=== PATIENT | male | born 1960 | race Caucasian/White ===

== ENCOUNTER 2017-09-17 19:47 | Inpatient (IN) | payer OTHER ==
[~2017-09-17] VITALS: Ht 162.6 cm; Wt 94.4 kg
--- NOTE | ~2017-09-17 | EKG ---
[place] [address] [facility] [place] [address] ELECTROCARDIOGRAM REPORT Name: GAURAV TOMAS Room #: 237-P ADM IN M.R.#: [id number] Admission: 09/17/17 Attend Phys: Misha Murillo MD Discharge: Date of : 64 Report #: [id number] THIS REPORT FOR: //name// [facility] ED Test Date: 2017-09-17 Test Time: 19:59:53 Pat Name: GAURAV TOMAS Department: Room: Gender: M Knocker Off: YAMILET : 1960 Requested By: Hanane Santamaria Order Number: [id number] MD: Bridger May Measurements Intervals [place] Rate: 92 P: 60 AK: 123 QRS: 80 QRSD: 103 T: 50 QT: 425 QTc: 526 Interpretive Statements Sinus rhythm Poor R wave progression Borderline T wave abnormalities Prolonged QT interval No previous ECG available for comparison Electronically Signed On 09-18-2017 7:53:35 CDT by Bridger May [email or web address] <ELECTRONICALLY SIGNED> By: Bridger May MD, [facility] 09/18/17 0753 [id number] Bridger May MD, FACC /EPI
--- NOTE | ~2017-09-17 | HC ---
[facility] [place] [address] CONSULTATION Name: GAURAV TOMAS Room #: 237-P ADM IN M.R.#: [id number] Admission: 09/17/17 Attend Phys: Misha Murillo MD Discharge: Date of : 64 Report #: [id number] THIS REPORT FOR: //name// CC: Misha ROSS PCP DATE OF SERVICE: 09/18/2017 REFERRAL PHYSICIAN: Dr. Adriano Pace. REASON FOR REFERRAL: Acute respiratory failure. HISTORY OF PRESENT ILLNESS: The patient is a 56-year-old white male who presents to the Emergency Room with dyspnea. A pulmonary consultation was requested. History is somewhat incomplete. The patient apparently has significant history regarding his abdominal issues. He has had prior bowel resections on 2 occasions. The surgery was said to be done at [facility]. According to the patient, he was in his usual state of health until for the past 3 days that he started to notice increasing dyspnea on exertion. He complains of cough productive of purulent sputum along with headache. The patient smokes. Portable chest x-ray on admission along with CT chest angiogram was reviewed. This revealed bilateral patchy infiltrates, is felt to be moderate. Bronchiectasis is also noted bilaterally, more on the right lung field than the left. Currently, he is better. Somewhat restless. Alert and oriented to place and time. This morning, he complains of abdominal distention following breakfast. He states that he gets his care usually at [facility]. PAST MEDICAL HISTORY: Notable for tobacco abuse, prior history of bowel resection, history of right hip replacement. ALLERGIES: TORADOL, DEMEROL, MORPHINE, REACTIONS NOT SPECIFIED. MEDICATIONS: His home medication list is unknown. FAMILY HISTORY: Unknown. SOCIAL HISTORY: He smokes about a pack a day. Denies any alcohol use. [facility] [address] [place] [address] CONSULTATION Name: GAURAV TOMAS Room #: 237-P [facility] IN [facility]#: [id number] Admission: 09/17/17 Attend Phys: Misha Murillo MD Discharge: Date of : 64 Report #: [id number] REVIEW OF SYSTEMS: As mentioned above. Otherwise, 10-point system review negative. PHYSICAL EXAMINATION: GENERAL: He is awake, alert, in no apparent distress. VITAL SIGNS: Temperature is 97.4 degrees Fahrenheit, pulse is 90, respiratory rate is 20, blood pressure is 164/93 mmHg, saturation 96%. HEENT: Unremarkable. NECK: Supple without any lymphadenopathy or thyromegaly. CHEST: Breath sounds are good with few scattered crackles. No obvious wheezes. CARDIOVASCULAR: Normal S1, S2. There are no murmurs or gallop. There is no JVD. There is no carotid bruit. Pulses are 2+/4+ bilaterally. ABDOMEN: Moderately distended, tender in the left quadrant without rebound. No obvious masses felt. Surgical scars are seen in the mid abdominal line area. GENITOURINARY: Deferred. RECTAL: Deferred. EXTREMITIES: There is edema, cyanosis or clubbing. LABORATORY DATA: Chest x-ray and CT chest as mentioned above showing patchy bilateral infiltrates along with bilateral bronchiectasis. No evidence of pulmonary emboli seen. Small amount of ascites is noted. Arterial blood gas on admission revealed pH 7.25, pCO2 77, pO2 of 82 on 3 liters of O2. Follow up arterial blood gas shows a pH 7.28, pCO2 64, pO2 of 99. Sodium 139, potassium 4.3, chloride 104, CO2 is 34, BUN is 11, creatinine 0.6. Liver enzymes are normal. Albumin is 2.8. WBC is 13,900 without obvious bandemia. Mild eosinophilia is noted. IMPRESSION: 1. Acute on chronic hypercapnic hypoxic respiratory failure in this 56-year-old white male. Chest x-ray and chest CT revealed patchy bilateral infiltrates along with bronchiectasis. Pneumonia is suspected, possible aspiration. Presence of bronchiectasis suggests possible gram-negative rods such as Pseudomonas as a possible organism. 2. Tobacco abuse. The patient probably has underlying chronic obstructive pulmonary disease along with bronchiectasis. Corticosteroids and bronchodilators will be recommended. 3. Abdominal distention. He has a past history of bowel resection. With his pneumonia patient may be developing early ileus. May need further workup. We will defer to primary care team. 4. Prior abdominal surgery. Details unclear. Recommend review of the records from [facility]. RECOMMENDATIONS: Agree with the current care including antibiotics. We would add corticosteroids, bronchodilators. DVT and GI prophylaxis is recommended. Tobacco cessation is strongly recommended. We will also need to address abdominal distention. We will defer to primary team. [facility] [address] [place] [address] CONSULTATION Name: GAURAV TOMAS Room #: 237-P ADM IN M.R.#: [id number] Admission: 09/17/17 Attend Phys: Misha Murillo MD Discharge: Date of : 64 Report #: [id number] Thank you for this consultation. <ELECTRONICALLY SIGNED> By: Jose Justin MD 09/19/17 1808 [id number] [id number] Jose Justin MD /nt
[2017-09-17 19:53] VITALS: BP 187/110
[2017-09-17 20:28] LABS: ABSOLUTE NEUTROPHILS 10.4 thou/uL (1.4-8.2); BASOPHILS 0.7 % (0.0-2.0); EOSINOPHILS 5.1 % (0.0-3.0); HEMATOCRIT 37.1 % (42.0-52.0); LYMPHOCYTES 8.9 % (24.0-44.0); MCH 28.3 pg (26.0-34.0); MCHC 32.4 g/dL (28.0-37.0); MCV 87.4 fL (80.0-100.0); MONOCYTES 10.7 % (1.0-8.0); PLATELET COUNT 386 thou/uL (150-400); POLYS 74.6 % (36.0-66.0); RBC 4.25 mil/uL (4.50-6.00); RDW 15.4 % (10.5-14.5); WBC 13.9 thou/uL (4.0-11.0)
[2017-09-17 20:36] LABS: ANION GAP 1 mmol/L (7-16); BUN 11 mg/dL (7-18); CALCIUM 7.9 mg/dL (8.5-10.1); CHLORIDE 102 mmol/L (98-107); CO2 34 mmol/L (21-32); CREATININE 0.7 mg/dL (0.7-1.3); GLUCOSE 140 mg/dL (74-106); POTASSIUM 3.4 mmol/L (3.5-5.1); SODIUM 137 mmol/L (136-145)
[2017-09-17 20:42] LABS: BE(vivo) 4.3 mmol/L (-2 to +3); HCO3 33.7 mmol/L (22.0-26.0); PO2 83.3 mmHg (80.0-100.0); sO2 94.2 % (92.0-98.0)
[2017-09-17 20:43] LABS: pH 7.259 (7.360-7.450)
[2017-09-17 20:44] LABS: ALBUMIN 2.8 g/dL (3.4-5.0); SGOT 36 U/L (15-37); SGPT 47 U/L (30-65); TOTAL BILIRUBIN 0.5 mg/dL (<0.1-1.0); TOTAL PROTEIN 7.9 g/dL (6.4-8.2); TROPONIN-I < 0.04 ng/mL (<0.06)
[2017-09-17 22:38] VITALS: BP 179/100
[2017-09-18] VITALS (17 sets, daily range): BP systolic 141–175; BP diastolic 79–99
[2017-09-18 05:09] LABS: BE(vivo) 1.6 mmol/L (-2 to +3); HCO3 29.9 mmol/L (22.0-26.0); PCO2 64.8 mmHg (35.0-45.0); PO2 99.7 mmHg (80.0-100.0); pH 7.282 (7.360-7.450); sO2 96.6 % (92.0-98.0)
[2017-09-18 06:56] LABS: HEMATOCRIT 38.3 % (42.0-52.0); HEMOGLOBIN 12.2 gm/dL (14.0-18.0); MCH 28.4 pg (26.0-34.0); MCHC 31.8 g/dL (28.0-37.0); MCV 89.2 fL (80.0-100.0); RBC 4.3 mil/uL (4.50-6.00); WBC 8.7 thou/uL (4.0-11.0)
[2017-09-18 07:10] LABS: CALCIUM 7.8 mg/dL (8.5-10.1); CREATININE 0.6 mg/dL (0.7-1.3); POTASSIUM 4.3 mmol/L (3.5-5.1)
[2017-09-19] VITALS (17 sets, daily range): BP systolic 128–155; BP diastolic 72–94
[2017-09-19 05:43] LABS: CALCIUM 8.3 mg/dL (8.5-10.1); CREATININE 0.6 mg/dL (0.7-1.3); POTASSIUM 4.3 mmol/L (3.5-5.1)
[2017-09-19 08:02] LABS: HEMATOCRIT 37.2 % (42.0-52.0); HEMOGLOBIN 12.1 gm/dL (14.0-18.0); MCH 28.5 pg (26.0-34.0); MCHC 32.5 g/dL (28.0-37.0); MCV 87.7 fL (80.0-100.0); RBC 4.24 mil/uL (4.50-6.00); RDW 15.6 % (10.5-14.5)
[2017-09-19 11:02] LABS: BE(vivo) 5.5 mmol/L (-2 to +3); HCO3 34.3 mmol/L (22.0-26.0); PCO2 73.4 mmHg (35.0-45.0); PO2 86.4 mmHg (80.0-100.0); pH 7.288 (7.360-7.450); sO2 95.1 % (92.0-98.0)
[2017-09-19 12:52] LABS: AMP/METHAMP POSITIVE (Negative); BARBITURATES Negative (Negative); BENZODIAZEPINES Negative (Negative); COCAINE Negative (Negative); METHADONE Negative (Negative); OPIATES Negative (Negative); PCP Negative (Negative)
[2017-09-20] VITALS (17 sets, daily range): BP systolic 116–146; BP diastolic 56–91
[2017-09-20 13:22] LABS: BE(vivo) 2.9 mmol/L (-2 to +3); HCO3 34.7 mmol/L (22.0-26.0); PCO2 101.3 mmHg (35.0-45.0); PO2 64.7 mmHg (80.0-100.0); pH 7.153 (7.360-7.450); sO2 84.5 % (92.0-98.0)
[2017-09-20 14:18] LABS: BE(vivo) 1.7 mmol/L (-2 to +3); HCO3 33.6 mmol/L (22.0-26.0); PO2 84.2 mmHg (80.0-100.0); sO2 92.2 % (92.0-98.0)
[2017-09-20 14:19] LABS: PCO2 99.9 mmHg (35.0-45.0); pH 7.144 (7.360-7.450)
[2017-09-20 14:48] LABS: HEMATOCRIT 37.6 % (42.0-52.0); HEMOGLOBIN 11.7 gm/dL (14.0-18.0); MCH 28.3 pg (26.0-34.0); MCHC 31.2 g/dL (28.0-37.0); MCV 90.6 fL (80.0-100.0); RBC 4.15 mil/uL (4.50-6.00); RDW 16.6 % (10.5-14.5); WBC 20.9 thou/uL (4.0-11.0)
[2017-09-20 14:57] LABS: ANION GAP < 0 mmol/L (7-16); BUN 26 mg/dL (7-18); CALCIUM 8.5 mg/dL (8.5-10.1); CHLORIDE 102 mmol/L (98-107); CO2 35 mmol/L (21-32); CREATININE 0.9 mg/dL (0.7-1.3); GLUCOSE 130 mg/dL (74-106); POTASSIUM 5.2 mmol/L (3.5-5.1); SODIUM 136 mmol/L (136-145)
[2017-09-21] VITALS (25 sets, daily range): BP systolic 127–178; BP diastolic 71–100
[2017-09-21 04:50] LABS: HEMATOCRIT 34.7 % (42.0-52.0); MCHC 31.8 g/dL (28.0-37.0); MCV 88.3 fL (80.0-100.0); RBC 3.92 mil/uL (4.50-6.00); RDW 16.4 % (10.5-14.5); WBC 11.7 thou/uL (4.0-11.0)
[2017-09-21 04:59] LABS: CALCIUM 8.5 mg/dL (8.5-10.1); CREATININE 0.8 mg/dL (0.7-1.3)
[2017-09-21 05:00] LABS: POTASSIUM 4.1 mmol/L (3.5-5.1)
[2017-09-21 05:12] LABS: BE(vivo) 9.1 mmol/L (-2 to +3); HCO3 35.5 mmol/L (22.0-26.0); PCO2 57.8 mmHg (35.0-45.0); PO2 59.6 mmHg (80.0-100.0); pH 7.406 (7.360-7.450); sO2 90.4 % (92.0-98.0)
[2017-09-21 15:18] LABS: BE(vivo) 7.9 mmol/L (-2 to +3); HCO3 33.1 mmol/L (22.0-26.0); PCO2 48.2 mmHg (35.0-45.0); PO2 50.7 mmHg (80.0-100.0); pH 7.454 (7.360-7.450); sO2 87.2 % (92.0-98.0)
[2017-09-22] VITALS (18 sets, daily range): BP systolic 136–186; BP diastolic 66–101
[2017-09-22 04:35] LABS: HEMATOCRIT 37.1 % (42.0-52.0); HEMOGLOBIN 12.5 gm/dL (14.0-18.0); MCH 28.8 pg (26.0-34.0); MCHC 33.6 g/dL (28.0-37.0); MCV 85.8 fL (80.0-100.0); RBC 4.33 mil/uL (4.50-6.00); RDW 15.1 % (10.5-14.5); WBC 12.3 thou/uL (4.0-11.0)
[2017-09-22 04:44] LABS: CALCIUM 8.4 mg/dL (8.5-10.1); CREATININE 0.7 mg/dL (0.7-1.3); POTASSIUM 3.9 mmol/L (3.5-5.1)
[2017-09-22 05:02] LABS: BE(vivo) 11.4 mmol/L (-2 to +3); HCO3 36.1 mmol/L (22.0-26.0); PCO2 47.2 mmHg (35.0-45.0); pH 7.501 (7.360-7.450); sO2 88.8 % (92.0-98.0)
[2017-09-22 05:04] LABS: PO2 51.1 mmHg (80.0-100.0)
[2017-09-23 04:00] VITALS: BP 156/96
[2017-09-23 05:27] LABS: HEMATOCRIT 38.5 % (42.0-52.0); HEMOGLOBIN 12.5 gm/dL (14.0-18.0); MCH 28.1 pg (26.0-34.0); MCHC 32.4 g/dL (28.0-37.0); MCV 86.7 fL (80.0-100.0); RBC 4.44 mil/uL (4.50-6.00); RDW 15.4 % (10.5-14.5); WBC 17.5 thou/uL (4.0-11.0)
[2017-09-23 05:37] LABS: CALCIUM 8.7 mg/dL (8.5-10.1); CREATININE 0.6 mg/dL (0.7-1.3); POTASSIUM 4.1 mmol/L (3.5-5.1)
[2017-09-23 08:42] VITALS: BP 155/98
[2017-09-23 18:36] VITALS: BP 154/72
[2017-09-23 19:25] VITALS: BP 164/78
[2017-09-24 03:00] VITALS: BP 122/60; BP 159/79
[2017-09-24 08:30] VITALS: BP 162/86
[2017-09-24 11:52] LABS: HEMATOCRIT 38.5 % (42.0-52.0); HEMOGLOBIN 12.6 gm/dL (14.0-18.0); MCH 28.4 pg (26.0-34.0); MCHC 32.7 g/dL (28.0-37.0); MCV 86.8 fL (80.0-100.0); RBC 4.44 mil/uL (4.50-6.00); RDW 15.7 % (10.5-14.5); WBC 15.3 thou/uL (4.0-11.0)
[2017-09-24 12:14] LABS: ALBUMIN 2.6 g/dL (3.4-5.0); CALCIUM 8.5 mg/dL (8.5-10.1); CREATININE 0.7 mg/dL (0.7-1.3); MAGNESIUM 1.8 mg/dL (1.8-2.4); POTASSIUM 3.9 mmol/L (3.5-5.1); TOTAL BILIRUBIN 0.4 mg/dL (<0.1-1.0); TOTAL PROTEIN 6.7 g/dL (6.4-8.2)
[2017-09-24 14:10] LABS: BE(vivo) 8.8 mmol/L (-2 to +3); PCO2 49.4 mmHg (35.0-45.0); pH 7.456 (7.360-7.450); sO2 92.6 % (92.0-98.0)
[2017-09-24 15:31] VITALS: BP 161/102
[2017-09-24] MEDS ORDERED: CEFUROXIME250 MG PO (15:37)
[2017-09-24] MEDS ORDERED: PREDNISONE 10 M10 MG PO (15:39)
[2017-09-24 15:52] VITALS: BP 162/102
== END 2017-09-24 18:30 | disposition home or self-care (01) | DRG 871 ==
LOC: ER 19:47 → EROBS 21:18 → ICU 21:18 → 4N 09-22 17:33
PROVIDERS: Hospitalist; Internal Medicine; Internal Medicine Pulmonary Disease; Nurse Practitioner Acute Care; Nurse Practitioner Family; Physician Assistant
DX: A41.9 Sepsis, unspecified organism (principal); J18.9 Pneumonia, unspecified organism; J96.21 Acute and chronic respiratory failure with hypoxia; J96.22 Acute and chronic respiratory failure with hypercapnia; G93.41 Metabolic encephalopathy; J44.0 Chronic obstructive pulmonary disease with (acute) lower respiratory infection; R18.8 Other ascites; R65.20 Severe sepsis without septic shock; Z96.641 Presence of right artificial hip joint; I10 Essential (primary) hypertension; F15.10 Other stimulant abuse, uncomplicated; K74.60 Unspecified cirrhosis of liver; F17.210 Nicotine dependence, cigarettes, uncomplicated; Z71.6 Tobacco abuse counseling; Z88.5 Allergy status to narcotic agent; Z88.8 Allergy status to other drugs, medicaments and biological substances
CPT/HCPCS: 10078; 10203; 10790; 27001

== ENCOUNTER 2018-09-29 13:08 | Emergency (ER) | payer OTHER ==
[~2018-09-29] VITALS: Ht 162.6 cm; Wt 74.8 kg
[~2018-09-29 13:08] MED LIST: CEFUROXIME250 MG PO; PREDNISONE 10 M10 MG PO
[2018-09-29 14:26] LABS: ABSOLUTE NEUTROPHILS 10.1 thou/uL (1.4-8.2); BASOPHILS 0.5 % (0.0-2.0); EOSINOPHILS 3.7 % (0.0-3.0); HEMATOCRIT 39.9 % (42.0-52.0); HEMOGLOBIN 13.4 gm/dL (14.0-18.0); LYMPHOCYTES 11.9 % (24.0-44.0); MCH 28.3 pg (26.0-34.0); MCHC 33.7 g/dL (28.0-37.0); MCV 83.9 fL (80.0-100.0); PLATELET COUNT 315 thou/uL (150-400); POLYS 74.9 % (36.0-66.0); RBC 4.75 mil/uL (4.50-6.00); RDW 14.6 % (10.5-14.5); WBC 13.5 thou/uL (4.0-11.0)
[2018-09-29 14:40] LABS: ALBUMIN 2.9 g/dL (3.4-5.0); CALCIUM 8.4 mg/dL (8.5-10.1); CREATININE 0.7 mg/dL (0.7-1.3); DIRECT BILIRUBIN 0.2 mg/dL (<0.1-0.3); TOTAL BILIRUBIN 0.5 mg/dL (<0.1-1.0); TOTAL PROTEIN 7.6 g/dL (6.4-8.2)
[2018-09-29 14:43] LABS: URINE BILIRUBIN NEGATIVE (Negative); URINE BLOOD NEGATIVE (Negative); URINE CLARITY CLEAR; URINE COLOR YELLOW; URINE GLUCOSE-RANDOM* NEGATIVE (Negative); URINE KETONES NEGATIVE (Negative); URINE LEUKOCYTES-REFLEX NEGATIVE (Negative); URINE NITRITE-REFLEX NEGATIVE (Negative); URINE PROTEIN (DIPSTICK) TRACE (Negative); URINE SPECIFIC GRAVITY 1.025 (1.005-1.035)
[2018-09-29 14:46] LABS: POTASSIUM 2.9 mmol/L (3.5-5.1)
[2018-09-29] MEDS ORDERED: CLOTRIMAZOLE10 MG PO (16:11)
[2018-09-29 16:20] VITALS: BP 176/104
[2018-09-29] MEDS ORDERED: POTASSIUM20 PO (16:20)
== END 2018-09-29 16:38 | disposition home or self-care (01) ==
LOC: ER 13:08
PROVIDERS: Emergency Medicine
DX: R13.10 Dysphagia, unspecified (principal); E87.6 Hypokalemia; F17.210 Nicotine dependence, cigarettes, uncomplicated; Z88.5 Allergy status to narcotic agent; Z88.6 Allergy status to analgesic agent; Z88.8 Allergy status to other drugs, medicaments and biological substances; Z96.641 Presence of right artificial hip joint

== ENCOUNTER 2018-10-02 01:27 | Inpatient (IN) | payer OTHER ==
[~2018-10-02] VITALS: Ht 162.6 cm; Wt 72.6 kg
--- NOTE | ~2018-10-02 | HC ---
[facility] [place] [address] CONSULTATION Name: GAURAV TOMAS Room #: 202-P [facility] IN M.R.#: [id number] Admission: 10/02/18 ������������������ Attend Phys: Derrek Berumen MD Discharge: ������������������ Date of : 64 Report #: [id number] THIS REPORT FOR: //name// CC: Derrek Berumen MD [facility] physician/PCP Silvino Nunn MD PALLIATIVE CARE CONSULTATION REQUESTING PHYSICIAN: Dr. Berumen CHIEF COMPLAINT: Pharyngeal cancer. HISTORY OF PRESENT ILLNESS: The patient is a 57-year-old male who had presented on 10/02. He presented initially with several concerns, however, has been subsequently found to have laryngeal cancerous process, most likely a mass was discovered on imaging, likely squamous cell carcinoma per ENT; however, biopsy has not yet been performed. The patient has had significant development of aspiration pneumonia, found to have significant dysphagia. Subsequently, has also developed significant delirium as well and is currently not responsive to verbal stimuli. The patient has been very agitated, requiring doses of Haldol and Ativan per nursing staff. The patient has required oxygen treatment as well. He has a history of polysubstance abuse and also cirrhosis of the liver. The patient has a complicated social history as well, though is . There is a situation of homelessness and this complicates his overall condition. PAST MEDICAL HISTORY: COPD, pharyngeal cancer, chronic hypoxic respiratory failure, cirrhosis, multidrug abuse. FAMILY HISTORY: Noncontributory. SOCIAL HISTORY: Again, history of polysubstance abuse previously. Again, complicated social situation, has 6 children, youngest is 11. He is , but homeless, potential situation as well. ALLERGIES: TORADOL, MORPHINE, DEMEROL. MEDICATIONS AT HOME: Unable to obtain his previous medication list, but it did not appear that he is on significant medications. PAST SURGICAL HISTORY: Right hip replacement, bowel resection x 2. REVIEW OF SYSTEMS: Unable to obtain due to medical condition. PHYSICAL EXAMINATION: VITAL SIGNS: Temp 36.7, pulse 105, respirations 17, blood pressure 120/42, 91% [facility] [address] [place] [address] CONSULTATION Name: GAURAV TOMAS Room #: 202-P ADM IN M.R.#: [id number] Admission: 10/02/18 ������������������ Attend Phys: Derrek Berumen MD Discharge: ������������������ Date of : 64 Report #: [id number] on nasal cannula. GENERAL: Not alert, not agitated on my current examination, but has been most recently per the staff. HEENT: Unable to assess. CARDIOVASCULAR: Regular rate and rhythm without murmur, although occasionally running tachycardic. RESPIRATORY: No accessory muscle use. No tachypnea. Does have diffuse rales noted. ABDOMEN: Appears to be soft, nonsignificantly tender. NEUROLOGIC: Unable to assess at this time due to present medical condition. LABORATORY DATA: This included a white blood cell 15.9, hemoglobin 12.1, platelets 239. Recent sodium 149, potassium 4.2, creatinine 0.6. ASSESSMENT AND PLAN: 1. Laryngeal cancer. At this time, we are waiting to see if he has an improvement in his delirium prior to any further treatment protocol as per Ears, Nose and Throat. Additionally, I have discussed with his spouse today the overall medical condition. She is aware of his present condition and understands the seriousness of this condition. She reports that he did not desire to have intubation or cardiopulmonary resuscitation and that he would not want a feeding tube. She understands that that would result in ultimately the patient's if he were not to be able to access nutrition. She is understanding of the fact if he gets any worse that he may require a palliative type of care in order to keep him comfortable. She is amenable to current medications including switch to Zyprexa and stoppage of Ativan, which I recommended to primary team in order to expedite the possibility of improvement in delirium. I spent approximately 25 minutes in discussion of advanced care planning today. Again, she is desiring to continue current care to see if he has some improvement in delirium, but if he has any declination further in his medical condition, then she would be amenable to discussion of hospice. 2. Delirium. Significant mixed. Again, switch to Zyprexa today as well to see if we can control his symptoms better and see if we can alleviate this symptom as soon as possible if this is a possibility. 3. Dysphagia. Discussed significantly with spouse today. Again, if unable to take p.o., likely to require hospice care services. Thank you very much for this consultation. I will continue to follow along with care, but if you have any questions, please feel free to contact me. ��������������������������������������������� ���������������������������������������� By: ��������������������������������������������� 2131 Esvin Baker DO /nt
[~2018-10-02 01:27] MED LIST changes: +CLOTRIMAZOLE10 MG PO; +POTASSIUM20 PO
[2018-10-02 01:33] VITALS: BP 144/67
[2018-10-02 02:07] LABS: MCH 27.6 pg (26.0-34.0); MCHC 32.8 g/dL (28.0-37.0)
[2018-10-02 02:12] LABS: HEMATOCRIT 41.6 % (42.0-52.0); HEMOGLOBIN 13.6 gm/dL (14.0-18.0); MCV 84.2 fL (80.0-100.0); PLATELET COUNT 301 thou/uL (150-400); RBC 4.94 mil/uL (4.50-6.00)
[2018-10-02 02:19] LABS: ALBUMIN 2.7 g/dL (3.4-5.0); ANION GAP 6 mmol/L (7-16); BUN 11 mg/dL (7-18); CALCIUM 8.3 mg/dL (8.5-10.1); CHLORIDE 99 mmol/L (98-107); CO2 33 mmol/L (21-32); CREATININE 0.7 mg/dL (0.7-1.3); DIRECT BILIRUBIN 0.5 mg/dL (<0.1-0.3); GLUCOSE 112 mg/dL (74-106); SGOT 29 U/L (15-37); SGPT 33 U/L (30-65); SODIUM 138 mmol/L (136-145); TOTAL BILIRUBIN 1.3 mg/dL (<0.1-1.0); TOTAL PROTEIN 7.3 g/dL (6.4-8.2); TROPONIN-I <0.06 ng/mL (<0.06); WBC 45.2 thou/uL (4.0-11.0)
[2018-10-02 02:21] LABS: POTASSIUM 2.8 mmol/L (3.5-5.1)
[2018-10-02 02:40] LABS: BE(vivo) 0.1 mmol/L (-2 to +3); HCO3 26.5 mmol/L (22.0-26.0); PCO2 50.3 mmHg (35.0-45.0); PO2 65.3 mmHg (80.0-100.0); sO2 91.5 % (92.0-98.0)
[2018-10-02 03:00] LABS: ABSOLUTE NEUTROPHILS 42.5 thou/uL (1.4-8.2)
[2018-10-02 03:02] LABS: PLATELET ESTIMATE NORMAL
[2018-10-02 03:43] VITALS: BP 144/66
[2018-10-02 05:16] LABS: AMP/METHAMP POSITIVE (Negative); BARBITURATES Negative (Negative); BENZODIAZEPINES Negative (Negative); COCAINE Negative (Negative); METHADONE Negative (Negative); OPIATES Negative (Negative); PCP Negative (Negative)
[2018-10-02 06:12] LABS: URINE BILIRUBIN NEGATIVE (Negative); URINE BLOOD NEGATIVE (Negative); URINE CLARITY CLEAR; URINE COLOR YELLOW; URINE GLUCOSE-RANDOM* NEGATIVE (Negative); URINE KETONES NEGATIVE (Negative); URINE LEUKOCYTES-REFLEX NEGATIVE (Negative); URINE NITRITE-REFLEX NEGATIVE (Negative); URINE PROTEIN (DIPSTICK) 1+ (Negative); URINE SPECIFIC GRAVITY 1.025 (1.005-1.035)
[2018-10-02 06:13] LABS: BACTERIA-REFLEX 1-9 Few /HPF (None Seen); CRYSTALS None Seen /LPF (None Seen); HYALINE CASTS 0-3 Few /LPF (None Seen); MUCUS 4-6 Moderate strn/LPF (None Seen); SQUAMOUS 0-3 Few /LPF (0-3); URINE RBC 0-2 Rare /HPF (0-2); URINE WBC-REFLEX 0-5 Rare /HPF (0-5)
--- NOTE | 2018-10-02 06:30 | NUR ---
PT NEW ADMIT FROM ED. PT ONLY RESPONDS TO PAIN STIMULI. IN COMPANY OF . VITALS STABLE WITH MILD FEVER. MAGNESIUM AND POTASSIUM BEING REPLACED. REPORTS PT HAS NO HISTORY OF DRUG USE. PT MAINTAINED ON O2 2L NASAL CANNULA. STRAIGHT CATH PATIENT TO OBTAIN URINE SAMPLE. VANCO STARTED.PT IS SR ON MONITOR. SEVERAL SKIN BREAKDOWNS. ERYTHEMA ON BOTH HANDS AND FEET/ CELLULITIS. WBC ELEVATED. CARE PLAN ACTIVATED. WILL CONTINUE TO MONITOR.
[2018-10-02 07:20] VITALS: BP 127/59
--- NOTE | 2018-10-02 15:19 | NUR ---
ORDERS RECEIVED FOR CLINICAL BEDSIDE SWALLOW EVALUATION; ADVERTISING DISPLAY ROTATOR HOMER STEWART COMPLETED AT BEDSIDE WITH PATIENT EVIDENCING OVERT S/S OF ASPIRATION WITH ALL CONSISTENCIES INCLUDING EMESIS S/P SWALLOW WITH THIN LIQUIDS. PATIENT REPORTS FREQUENT REFLUX AND SENSATION OF FOODS STICKING IN THROAT WHILE CONSUMING PO INTAKE. PATIENT ALSO PRESENTS WITH SIGNIFICANT HOARSE VOCAL QUALITY WHICH PER PATIENT IS NEW OF 2 MONTHS AGO. THIS ADVERTISING DISPLAY ROTATOR ATTEMPTED TO COMPLETE VIDEOSWALLOW TO FORMALLY ASSESS PHARYNGEAL SWALLOW FUNCTION AND EVALUATE PHARYNGEAL REFLUX; HOWEVER VFSS UNABLE TO BE COMPLETED D/T MULTIPLE SCHEDULING CONFLICTS WITH RADIOLOGY. BASED ON CLINICAL PRESENTATION TO ADVERTISING DISPLAY ROTATOR DEPT EARLIER THIS DATE AND AFTER DISCUSSION WITH VENEER DRIER TAILER DR DAS, ADVERTISING DISPLAY ROTATOR RECOMMENDS PATIENT BE PLACED NPO UNTIL VIDEOSWALLOW CAN BE COMPLETED TOMORROW MORNING 10/03/18. BOTH RN AND PATIENT UPDATED RE: POC.
--- NOTE | 2018-10-02 16:20 | NUR ---
ASSESSMENTS CHARTED - PT VERY SLEEPY AT THENN BEGINNING OF THE SHIFT AND THEN AWOKEN - CO'S OF BEING HUNGRY AND TIRSTY - DID NOT NOTE ANY CHOCKING WHILE EATING BREAKFAST - PT DID TELL DOCTOR THAT HE FELT FOOD GETS STUCK IN HIS THROAT - SPEECH CONSULT ORDERED - PT TO BE NPO UNTIL VBIDEO SWALLOW CAN BE DONE. MEDS PER JUL - NO CO'S OF PAIN - IV FLUIDS CONTINUE. PT VOIDING DARK NARINDER URINE. PT TO BE SEEN BY PHYS THERAPY - NICOTINE PATCH APPLIED. PT CAN BE RESTLESS AT TIMES HAS BEEN SLEEPING THIS AFTERNOON. O2 REMAIN AT 2 L NC - PT WITH PRODUCTIVE COUGH - SPUTUM BLOOD TINGED - DR THIAGO SMITH. ONCE PATIENT UP SHOWERED AND FEED HE BECAME LESS AGGITATED. APPEARS TO BE RESTING COMFORTABLE AT THE PRESENT TIME.
--- NOTE | 2018-10-02 17:31 | NUR ---
PT AWOKE FROM [place] - WANTING ICE CREAM AND FLUIDS - INFORMED PATIENT THAT HE WAS NOT ABLE TO HAVE THESE AND HE BECAME BELIGERANT - CURSING AND STATING THAT HE WAS ARACELIS TO [place] - GOT ATIVAN FOR PATIENT IN ATTEMPT TO CALM HI DOWN - HE REFUSED TO TAKE MEDICATION STATING THAT - WE WERE NOT GOING TO DRUG HIM, HE HAS RIGHTS- INFORMED PATIENT THAT i WOULD NOT GIVE MED. CALLED TO THE NURSES STATION -PATIENT HAD CALLED 911 AND OFFICER CHECKIING TO SEE IF EVERYTHING WAS OKAY - INFORMED OFFICER WHAT WAS HAPPENING AND HE STATED TO CALL THEMIF WE NEEDED ANYTHING. PT APOLOGIZED FOR BEING BELIGERANT AND CALLING 911; IS AT CAT SCAN AT THE PRESENT TIME - SAW DR Rhodes AND INFORMED HIM TO PATIENT BEHAVIOUR HE STATED TO GET [facility] CONSULT - DR MUÑOZ NOTIFIED.
[2018-10-02 20:20] VITALS: BP 159/77
--- NOTE | 2018-10-03 02:46 | NUR ---
1900, PT ALERT AND ORIENTED. ABLE TO CALL APPROPRIATELY AND MAKE NEEDS KNOWN. PT REPORTS THAT HE CALLED 911 DURING THE DAY BECAUSE " THEY WERE TRYING DRUG ME". SECURITY CALLED AT ABOUT 2200 TO CLARIFY WITH THE OFFICERS. PT WAS THEN CALM AND COOPERATIVE. DAUGHTER VISITED AT ABOUT 2100. AT ABOUT 0000, PT STARTED TO BE AGITATED AND AXIOUS. YELLING " I DID NOT DO ANYTHING WRONG." REASSURED PT BUT WOKE UP 0200 EXTREMELY AGITATED. STANDING ON THE BED, PULLING IV TUBES OFF HIM. ATIVAN 1MG GIVEN. UPDATED REFRIGERATOR CAR ICER MARLA ABOUT PT CONDITION . PT SLEPT AFTER THE ATIVAN. WILL CONTINUE TO MONITOR PT AND FOLLOW PLAN OF CARE.
[2018-10-03 04:00] VITALS: BP 155/84
[2018-10-03 05:20] LABS: HEMATOCRIT 41.7 % (42.0-52.0); MCH 27.3 pg (26.0-34.0); MCHC 31.3 g/dL (28.0-37.0); MCV 87.3 fL (80.0-100.0); RBC 4.78 mil/uL (4.50-6.00); WBC 32.7 thou/uL (4.0-11.0)
[2018-10-03 05:42] LABS: ALBUMIN 2.5 g/dL (3.4-5.0); CALCIUM 8.5 mg/dL (8.5-10.1); CREATININE 0.6 mg/dL (0.7-1.3); MAGNESIUM 1.9 mg/dL (1.8-2.4); POTASSIUM 3.8 mmol/L (3.5-5.1); TOTAL BILIRUBIN 0.4 mg/dL (<0.1-1.0); TOTAL PROTEIN 7.4 g/dL (6.4-8.2)
[2018-10-03 07:42] VITALS: BP 142/85
--- NOTE | 2018-10-03 13:53 | NUR ---
CM attempted to visit with the pt;however he is sleepy and not able to participate in conversation. Case discussed with the care team. Pt had aggitation overnight and needed ativan. Pt's has not been back since admission. They live together but they may be living out of their car. Pt's UDS was postive for meth. Pt was here a year ago with similar situation and they were living in a friends basement. Nursing reports that an adult dtr came by last night to visit. Pt without insurance. [facility] referral initiated. Pt will likely need referrals to [facility] and script assist at [place]. ENT consult, video swallow and CT in progress. Will ask for therapy evals when appropriate as well as a followup visit to discuss [facility] resources.
[2018-10-03 14:02] VITALS: BP 142/85
--- NOTE | 2018-10-03 15:10 | HC ---
[facility] [place] [address] CONSULTATION Name: GAURAV TOMAS Room #: 202-P ADM IN M.R.#: [id number] Admission: 10/02/18 ������������������ Attend Phys: Derrek Berumen MD Discharge: ������������������ Date of : 64 Report #: [id number] THIS REPORT FOR: //name// CC: Derrek Berumen [facility] physician/PCP REFERRING PHYSICIAN: Dr. Berumen. REASON FOR REFERRAL: COPD. HISTORY OF PRESENT ILLNESS: The patient is a 57-year-old white male who presents to the ED with dyspnea and difficulty swallowing. He has a history of COPD. Pulmonary consultation was requested. The patient is known to this physician from his last hospitalization in 09/2017. He is known to have COPD along with chronic hypercapnic respiratory failure. The patient states that he was in his usual state of health until about a week ago started to develop dysphagia, hoarseness along with dyspnea. Denies any fever, chest pain, hemoptysis, nausea, vomiting, diarrhea. PAST MEDICAL HISTORY: Notable for multiple bowel surgery per patient, hospitalized at [facility] in the past, tobacco abuse, presumed COPD, right hip surgery, drug abuse including amphetamines. ALLERGIES: TORADOL, DEMEROL, MORPHINE, reactions not specified. HOME MEDICATIONS: Reviewed. FAMILY HISTORY: Noncontributory. SOCIAL HISTORY: He smokes about a pack a day. Denies any alcohol use, but does abuse drugs including amphetamines. REVIEW OF SYSTEMS: As mentioned above, otherwise 10-point systems reviewed were negative. PHYSICAL EXAMINATION: GENERAL: He is awake, alert, in no distress. VITAL SIGNS: Temperature is 101.8 degrees Fahrenheit, maximum, currently it is 98.6; pulse is 90; respiratory rate is 16; blood pressure 127/59 mmHg; saturation 95%. HEENT: Normocephalic, atraumatic. NECK: Supple, without lymphadenopathy or thyromegaly. CHEST: Breath sounds are fair with mild coarse breath sounds bilaterally. CARDIOVASCULAR: Normal S1, S2. No obvious murmurs or gallop. Pulses are 2+/4+ [facility] [address] [place] [address] CONSULTATION Name: GAURAV TOMAS Room #: 202-P ADM IN M.R.#: [id number] Admission: 10/02/18 ������������������ Attend Phys: Derrek Berumen MD Discharge: ������������������ Date of : 64 Report #: [id number] bilaterally. ABDOMEN: Soft, nontender, no organomegaly or masses felt. GENITOURINARY: Deferred. RECTAL: Deferred. EXTREMITIES: There is no edema, cyanosis or clubbing. LABORATORY DATA: Chest x-ray shows mild bilateral interstitial infiltrates. Influenza A and B swab is negative. Urine drug screen was positive for amphetamines. Sodium 138, potassium 2.8, chloride 99, CO2 33, BUN is 11, creatinine 0.7. Liver enzymes are grossly unremarkable. WBC 45,200; hemoglobin 13.6; platelets are normal; has significant bandemia. Albumin 2.7. Arterial blood gas revealed pH 7.34, pCO2 of 50, pO2 of 65 on 2 liters of O2. IMPRESSION: 1. Dyspnea, dysphagia in this 57-year-old white male. His voice has also become hoarse over the past week. Need to rule out mediastinal or upper airway pathology. 2. Rohll-kw-cuhhkra hypercapnic hypoxic respiratory failure. 3. Tobacco abuse, chronic obstructive pulmonary disease exacerbation. 4. Infiltrates, probable pneumonia. Patient is febrile along with marked leukocytosis. 5. Cellulitis involving left upper extremity, may be the source for febrile illness. 6. Hypokalemia, currently being replaced. 7. Encephalopathy, toxic metabolic. 8. Substance abuse including tobacco and amphetamines. RECOMMENDATION: The patient will need a CT of the neck and chest to rule out upper airway and mediastinal pathology. Speech has been already consulted. Agree with broad-spectrum antibiotics. Continue corticosteroids and bronchodilators. DVT and GI prophylaxis will be addressed. Strongly recommend smoke cessation along with counseling for drug abuse. Thank you for this consultation. ��������������������������������������������� <ELECTRONICALLY SIGNED> ���������������������������������������� By: Jose Justin MD ��������������������������������������������� 10/03/18 1510 1700 0656 Jose Justin MD /nt
[2018-10-03 20:00] VITALS: BP 148/94
[2018-10-04 04:30] VITALS: BP 121/77
[2018-10-04 06:00] LABS: HEMOGLOBIN 12.1 gm/dL (14.0-18.0); MCH 27.2 pg (26.0-34.0); MCV 87.7 fL (80.0-100.0); RBC 4.44 mil/uL (4.50-6.00); RDW 15.4 % (10.5-14.5); WBC 24.3 thou/uL (4.0-11.0)
[2018-10-04 06:14] LABS: CALCIUM 9.1 mg/dL (8.5-10.1); CREATININE 0.6 mg/dL (0.7-1.3); POTASSIUM 4.2 mmol/L (3.5-5.1)
[2018-10-04 07:27] VITALS: BP 130/80
--- NOTE | 2018-10-04 08:19 | NUR ---
RECEIVED PT'S CARE AT 1920; PT. ON CHAIR; DROWSY; WAKES UP WHEN NAME IS CALLED; DURING ASSESSMENT PT. DROWSY; NOT ABLE TO ANSWER WHERE HE IS OR DAY; NO C/O PAIN; AT MIDNIGHT TRANSFER TO BED; AT AROUND 0130 PT. WOKE UP CONFUSED; IRRITABLE; IMPULSIVE; PRN MEDICATION GIVEN; PULLED TWO IVS; TRYING TO GET UP FROM BED FOR AROUND 3H; PRN HALDOL GIVEN; AT AROUND 0300 PT. FALLED TO SLEEP; NEW IVs STARTED; ASSESSMENT CHARDED; FOLLOWING POC; PASSED ON REPORT.
[2018-10-04 15:19] VITALS: BP 119/80
--- NOTE | 2018-10-04 18:21 | NUR ---
CONTRARY, IMPULSIVE WHEN NOT ASLEEP. DR. DELANEY, ENT, SCOPES HIM IN THE ROOM AND DISCOVERS A TUMOR ON HIS RIGHT VOCAL CORD. HIS SPEECH IS VERY GUTTERAL AND DIFFICULT TO UNDERSTAND. BG WNL. WBC 24.3 BUT WAS 32.7; ANTIBIOTICS ORDERED. FALL PRECAUTIONS IN PLACE, CLOSE TO NURSES' STATION, FREQUENT CHECKS, WILL CONTINUE TO MONITOR.
[2018-10-04 19:13] VITALS: BP 180/83
[2018-10-05 00:15] VITALS: BP 132/80
[2018-10-05 04:10] VITALS: BP 126/84
--- NOTE | 2018-10-05 04:29 | NUR ---
Patient making slow progress towards outcome goals. Vital signs stable. Haldol given for restlessness. Incontinent of urine. IVfluids infusing. High fall risks, fall precautions in place. Refused fingerstrick.
[2018-10-05 06:10] LABS: ABSOLUTE NEUTROPHILS 14.4 thou/uL (1.4-8.2); BASOPHILS 0.1 % (0.0-2.0); EOSINOPHILS 0.1 % (0.0-3.0); HEMOGLOBIN 12.1 gm/dL (14.0-18.0); LYMPHOCYTES 3.3 % (24.0-44.0); MCH 27.2 pg (26.0-34.0); MCHC 29.6 g/dL (28.0-37.0); MONOCYTES 6.3 % (1.0-8.0); PLATELET COUNT 239 thou/uL (150-400); POLYS 90.2 % (36.0-66.0); RBC 4.45 mil/uL (4.50-6.00); RDW 16.4 % (10.5-14.5); WBC 15.9 thou/uL (4.0-11.0)
[2018-10-05 06:38] LABS: CALCIUM 9.3 mg/dL (8.5-10.1); CREATININE 0.7 mg/dL (0.7-1.3); POTASSIUM 5.1 mmol/L (3.5-5.1)
[2018-10-05 08:23] VITALS: BP 139/94
--- NOTE | 2018-10-05 10:41 | HC ---
[facility] [place] [address] CONSULTATION Name: GAURAV TOMAS Room #: 202-P ADM IN M.R.#: [id number] Admission: 10/02/18 ������������������ Attend Phys: Derrek Berumen MD Discharge: ������������������ Date of : 64 Report #: [id number] THIS REPORT FOR: //name// CC: Derrek Berumen [facility] physician/PCP DATE OF SERVICE: 10/04/2018 REASON FOR CONSULTATION: Hoarseness. HISTORY OF PRESENT ILLNESS: The patient is a 57-year-old male who has been hoarse by his 's account for about 10 months. She had encouraged him to go see a physician about his hoarseness, but he has refused to go. He has been admitted to the hospital with cellulitis, septicemia and COPD exacerbation with hypokalemia. He has been sedated, was sedated last night, but this morning, now midday, he is still somewhat sedated. He is able to respond to vigorous stimulation and I did ask whether I could look at his throat and he said yes, but he could not tolerate the scope going through his nose, so I did look at his voice box through his oral cavity. Sedation is significant enough that he does not really have much of a gag response. On exam, he does have a right-sided mass with paralysis on the right side. PAST MEDICAL HISTORY: Significant for hip replacement. See his complete medical record for his medical history. FAMILY HISTORY: Noncontributory. SOCIAL HISTORY: He smokes a pack a day and has been since he was a teenager. REVIEW OF SYSTEMS: He is hoarse, but he is somewhat sedated and not really able to communicate any other significant complaints at this time. PHYSICAL EXAMINATION: GENERAL: On exam, he is a well-developed male, who is in no apparent distress. He is resting, semi-supine in bed and is fairly sedate. HEENT: Head is normocephalic. Pupils are equal. Nasal septal deviation to the left. Oral cavity, no granulation or ulcerations seen. Hypopharynx and larynx examined by flexible fiberoptic laryngoscopy transorally show secretions in the hypopharynx. There is a right true vocal cord mass, which is occupying the majority of the cord. Right true vocal cord mobility is impaired. NECK: Cervical adenopathy is palpated bilaterally. The lymph nodes are significantly larger than 2 cm. 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 Aishwarya status is unknown. It is difficult to determine on CT scan whether any of these are metastatic disease, but there are generous lymph nodes present. [address] [address] CONSULTATION Name: GAURAV TOMAS Room #: 202-P [facility] IN M.R.#: [id number] Admission: 10/02/18 ������������������ Attend Phys: Derrek Berumen MD Discharge: ������������������ Date of : 64 Report #: [id number] PLAN: He will need biopsy to confirm the diagnosis and then treatment. Surgical treatment for a person with COPD with [id number] history of smoking would be total laryngectomy. Alternatively, chemotherapy and radiation therapy may be organ sparing; however, the patient would need to be significantly motivated. ��������������������������������������������� <ELECTRONICALLY SIGNED> ���������������������������������������� By: Chivo Gill MD ��������������������������������������������� 10/05/18 1041 [id number] Chivo Gill MD /nt
[2018-10-05 15:15] VITALS: BP 135/80
--- NOTE | 2018-10-05 15:55 | NUR ---
PT A&O TO SELF, IV INTACT IN L ARM INFUSING NS @80/HR. O2@5L PER NC HUMIDIFIED. PT BECAME RESTESS, CLIMBING OUT OF BED AND PULLING AT IV. UNABLE TO REDIRECT. INCONT. OF BLADDER. ATIVAN IV GIVEN, WILL CONT POC.
[2018-10-05 19:42] VITALS: BP 146/89
--- NOTE | 2018-10-05 23:07 | NUR ---
ASSUMED PT AT 1900. PT DROWSY BY AROUSABLE BY NAME. PT WAS SOMEWHAT AGITATED, WOULD NOT STAY IN BED, 0.5 OF ATIVAN GIVEN. MUCINEX NOT GIVEN B/C PT IS NPO. RT CALLED FOR BREATHING TX. ASSESSMENTS ARE DOCUMENTED. PT IS INCONTINENT. STABLE IN BED NOW. ORAL CARE DONE. PT CARE TRANSFERED TO ANOTHER NURSE AT 2325.
[2018-10-06] VITALS: BP 170/92
--- NOTE | 2018-10-06 04:07 | NUR ---
CARE ASSUMED AT 2300 10/05/18. CLIENT IS ALERT TO NAME AND PAIN AND DROWSY. NOT CURRENTLY ON TELE, HAS SLIGHT EDEMA 1+ THROUGOUT. REMAINS ON 02 4L/NC. CURRENTLY NPO, LAST BM 10/02/18 ON RECORD. INCONT OF B & B. BRUISING THROUGHT AND OPEN SCARS/SCABS ON UPPER BILATERAL EXTREMITIES. LEFT FA PIV W/ NS @ 100ML/HR. CLIENT CURRENTLY IS AC/HS WITH NO SC SSI. PLEASE SEE [employer] FOR ADDITIONAL QUESTIONS OR CONCERNS.
[2018-10-06 08:00] VITALS: BP 125/87
[2018-10-06 11:42] VITALS: BP 189/102
--- NOTE | 2018-10-06 12:24 | NUR ---
ASSUMES PATIENT CARE, ASSESSMENT CHARTED, CONFUSED AND AGITATED, COMBATIVE FOR SHORT PERIODS OF TIME THEN WILL SLEEP. HALDOL GIVEN. WILL CONTINUE TO MONITOR
[2018-10-06 16:00] VITALS: BP 163/101
--- NOTE | 2018-10-06 17:49 | NUR ---
ASSESSMENT CHARTED, PT IS NOT ORIENTED, AT TIMES RESTLESS AND COMBATIVE. NS INFUSING AT 125. BLOOD PRESSURES INCREASED, CALL TO DR. HINES TO REPORT INCREASED BP, NO ORDERS AT THIS TIME. O2 AT A4L, WILL CONTINUE TO MONITOR
[2018-10-06 20:57] VITALS: BP 180/99
[2018-10-06 21:12] LABS: BE(vivo) 7.4 mmol/L (-2 to +3); HCO3 36.8 mmol/L (22.0-26.0); PO2 114.5 mmHg (80.0-100.0); sO2 97.5 % (92.0-98.0)
[2018-10-06 21:14] LABS: pH 7.286 (7.360-7.450)
--- NOTE | 2018-10-07 04:39 | NUR ---
1900. PT CONFUSED AND AGITATED. ATIVAN WITH NO SUCCESS. PT PULLING ON O2 IV TUBING. OBTAINED RETRAINT ORDER. CODE STATUS CHANGE TO NO CODE BY JIMMY HINES. REMAINS NPO. RT FOUT PT 02 SATS IN 70S ON 4L NASAL CANNULA. STAT BLOOD GAS WERE DOSE. CRITICAL VALUES CALLED TO JIMMY DAS. NO NEW ORDERS OBTAINED. ENCOURAGED TO CONTINUE KEEPING PT COMFORTBLE. WILL CONTINUE WITH PLAN OF CARE
[2018-10-07 04:45] VITALS: BP 181/95
[2018-10-07 08:00] VITALS: BP 186/122
[2018-10-07 10:03] VITALS: BP 184/99
[2018-10-07 12:00] VITALS: BP 181/102
--- NOTE | 2018-10-07 15:00 | NUR ---
REFERRAL FAXED TO HOSPICE INTAKE FOR HOSPICE HOUSE EVAL. PRESS CUTTER, DEVON, WILL EVAL PT 10/08 AROUND 10 AM.
[2018-10-07 16:00] VITALS: BP 162/102
--- NOTE | 2018-10-07 16:19 | NUR ---
SPOKE WITH TO ALERT OF HOSPICE HOUSE EVAL IN AM BETWEEN 9-10. OFFERED OPTIONS OF HOSPICE HOUSE EVALS WITH SHE CHOSE TO HAVE HOSPICE HOUSE EVAL. SHE QUESTIONS BIOPSY OF PATIENT AND STATUS OF BIOPSY.
[2018-10-07 20:15] VITALS: BP 170/83
--- NOTE | 2018-10-07 20:40 | NUR ---
PATIENT ORIENTED TO SELF AND LOCATION AND AGITATED CALLING OUT TO STAFF AND ATTEMPTING TO KICK AND HIT STAFF. PATIENT BEING FOLLOWED BY DR. MUÑOZ. POSSIBLE DISCHARGE TO HOSPICE CARE ONE SPOUSE DECIDES ON A FACILITY.
[2018-10-08 00:45] VITALS: BP 149/89
--- NOTE | 2018-10-08 00:51 | NUR ---
ASSUMED CARE AROUND 1900. DROWSY, WAS ON SW RESTRAINTS. ORAL CARE AND SUNCTION PROVIDED AT BEDSIDE. A DOSE OF HALDOL WAS ADMINISTERED EARLIER FOR AGITATION. AROUND 2229, PT BECAME VERBALLY RESPONSITVE STRATED COMMUNICATING NEEDS FOR ORAL CARE, BED CHANGES, AND WANTING TO TALK TO TRANG ON PHONE. AFTER ALL PT'S NEEDS WERE MET, PT VERVALIZED THAT PT WILL NOT DISCONNECT ANY MEDICAL DEVIDES ANYMORE. RELIEASED THE RESTRAINTS AND STAYED WITH THE PT FOR ABOUT 30MIN TO ENSURE THAT PT SHOWS SAFE BEHAVIORS. LEFT THE ROOM AND FREQUENT VISUAL CHECKS WERE RENDERERED TO MAKE SURE PT IS SAFE AND RECEIVING ALL MEDICAL TX. PT WAS ON FACE MASK, BUT REQUESTED TO BE ON NASAL CANNULA, REPORTED TO RT ARSH AND PT WAS PUT ON NS 1L SATTING ABOVE 94%. AROUND MIDNIGHT, PT'S FAMILY ARRIVED AND PT REUQESTED TO BE TRANSFFERED TO [facility] RIGHT AWAY BECAUSE PT'S SURGERIES MAJORITY OF MEDICAL CARES WERE PROVIDED AT [facility]. EXPLAINED TO PT AND FAMILY THE PROCESS OF NON-EMERGENCY TRANSFER. CALLED [facility] AND REPORTED THE REQUEST. THERE ARE NO RESOUCES AVAILABLE AT THIS TIME TO SAFELY TRANSFER THE DAGOTNET. PT AND VERVLAIZE THE UNDERSTANDING OF THE SITUATION. WILL LEAVE A DETAILED REPORT FOR DAY SHIFT TO FOLOOW UP WITH ATTENDING/AMY/KENYETTA. PT IS RESTING ON BED COMFORTABLY. NO S/S ACUTE DISTRESS NOTED OR REPORTED AT THIS TIME. WILL CONT TO MONITOR FOR ANY CHANGES IN CONDITION.
[2018-10-08 04:45] VITALS: BP 137/72
[2018-10-08 08:14] VITALS: BP 159/68
--- NOTE | 2018-10-08 14:14 | NUR ---
Hospice met with patient and . Hospice reports adament she wants biopsy done prior to any decision regarding hospice services. Udpated Dr Berumen.
--- NOTE | 2018-10-08 16:27 | NUR ---
Assumed pt care at 7am.Pt in bed sleeping on and off .Assessment completed. Vss.Pt was evaluated for hospice house and accepted for transfer today.But when pt informed,she refused and wanted pt have laryngeal biopsy prior to transfer to hospice house.Dr Berumen notified and he discussed the care options with the .Pt kept npo and oral care done as needed.Pt wet bed alot today and refused external catheter.Ivf infusing as ordered.Will continue to monitor.
[2018-10-08 20:10] VITALS: BP 162/70
[2018-10-09 04:44] LABS: HEMATOCRIT 40.8 % (42.0-52.0); MCH 27.6 pg (26.0-34.0); MCHC 31.8 g/dL (28.0-37.0); MCV 86.7 fL (80.0-100.0); PLATELET COUNT 229 thou/uL (150-400); RDW 14.7 % (10.5-14.5); WBC 11.1 thou/uL (4.0-11.0)
[2018-10-09 04:45] VITALS: BP 153/89
[2018-10-09 04:46] LABS: CALCIUM 8.8 mg/dL (8.5-10.1); CREATININE 0.7 mg/dL (0.7-1.3); POTASSIUM 3.4 mmol/L (3.5-5.1)
[2018-10-09 07:33] VITALS: BP 137/86
--- NOTE | 2018-10-09 07:46 | NUR ---
ASSUMED PT CARE AT 1900. VSS. PT A&0X4. ASSESSMENTS AND MEDS GIVEN ARE DOCUMENTED. PT IS STRONG AND MORE STEADY ON HIS FEET. PT HAD A SHOWER THIS AM. BLOOD SUGAR HAS BEEN STABLE SINCE LAST NIGHT. WAS MOVED FROM 202 TO 208 BECAUSE OF HIS MED/SURG STATUS. PT COMPLAINED OF PAIN, FENTANYL WAS GIVEN TO MANAGE PAIN. PT IS STABLE IN BED. WILL CONTINUE TO MONITOR PER POC
[2018-10-09 07:47] LABS: ABSOLUTE NEUTROPHILS 9.4 thou/uL (1.4-8.2)
[2018-10-09 07:48] LABS: ANISOCYTOSIS 1+
--- NOTE | 2018-10-09 10:47 | NUR ---
Assess due to npo status x 7 days. Pt admtited with copd, and new dx SCCA of larynx. Severe wt loss 39 lb this month. Hx polysubstance abuse, cirrhosis. Chart reviewed, and palliative care/hospice being considered. Spoke with SWS and wanting bx however chart indicates pt may not tolerate a bx. Being maintained on IVF. Will continue to follow to determine plan of care.
--- NOTE | 2018-10-09 15:32 | NUR ---
Case discussed with the care team.Pt is more alert and conversant today. He is interested in possible peg tube placement and bx. NPO recommended per ST with an additional bedside swallow today. Pt to sunday jones with his family. Hospice referral on hold at this time. [employer] liason here to work on SSD and [place] medicaid application with the pt and his . Pt's not here yet and not answering her phone. Continuing to follow for support and dc planning pending pt/family's decisions for plan of care.
--- NOTE | 2018-10-09 18:14 | NUR ---
ASSUMED CARE OF PATIENT AT 0700. PATIENT COMPLAINS OF GENERALIZED WHOLE BODY PAIN AND ALLEVIATED WITH FENTANYL Q 4 HOURS, PATIENT ASKED APPROPRIATELY. PATIENT'S BLOOD SUGARS WERE MONITORED Q 6 HOURS AND REMAINED ABOVE 80. PATIENT WAS SEEN BY GI AND ST FOR SWALLOW STUDY. PATIENT IS CONTINUING TO STAY NPO. PATIENT POTASSIUM SUPPLEMENTED IV AND AWAITING LAB RECHECK. PATIENT'S FAMILY AT THE BEDSIDE FOR THE ENTIRETY OF THE AFTERNOON. CONTINUE TO FOLLOW POC.
[2018-10-09 20:01] VITALS: BP 135/78
--- NOTE | 2018-10-10 04:27 | NUR ---
ASSUMED PT CARE AT 1900. VSS. PT A&0X4. STILL COMPLAINING OF GENERALIZED PAIN TO WHICH FENTANYL IS BEING USED TO MANAGE IT. NEW IV STARTED ON LEFT FOREAM, PREVIOUS IV STARTED LEAKING. 1/2 AN AMP OF DEXTROSE IVP HAD TO BE GIVEN TONIGHT PT'S BLOOD SUGAR DROPPED TO THE 60s. WHEN RECHECKED, FSBS CAME BACK UP. PT'S VISITED AROUND 3AM THIS MORNING, PT BARELY GOT ANY SLEEP OVER NIGHT, HE TOOK A COUPLE LAPS AROUND THE UNIT. HAD A SHOWER LAST NIGHT. PT REMAINS STRONG AND STEADY ON HIS FEET. PT IS STABLE, WILL CONTINUE TO MONITOR PER POC.
[2018-10-10 05:04] LABS: ANION GAP < 0 mmol/L (7-16); BUN 14 mg/dL (7-18); CALCIUM 8.6 mg/dL (8.5-10.1); CHLORIDE 103 mmol/L (98-107); CO2 44 mmol/L (21-32); CREATININE 0.6 mg/dL (0.7-1.3); GLUCOSE 96 mg/dL (74-106); POTASSIUM 3.5 mmol/L (3.5-5.1); SODIUM 145 mmol/L (136-145)
[2018-10-10 05:41] VITALS: BP 129/80
[2018-10-10 10:20] VITALS: BP 146/75
--- NOTE | 2018-10-10 11:06 | NUR ---
Chart has been reviewed and would recommend change D5 IVF to clinimix PPN at 125ml/hr with 250ml 20% lipids until decision on PEG made. Pt has been npo 8 days.
--- NOTE | 2018-10-10 12:27 | NUR ---
Pt's spouse did meet with [employer] and the pt yesterday late afternoon. [place] medicaid application was initiated for the pt, his and their 11yr old dtr. They maintain legal custody but day to day care and retirement is provided by one of their adult children. The pt had a bx this am and plan for peg tube placement will likely be on Saturday. [employer] will also initiate a SS disability application with the pt as well given his overall health condition. The pt is currently on o2. Cm to reach out to [facility]'s enteral liason to enquire about [facility] enteral formula and supplies as well as [facility] o2. Will reassess pt's dc needs early next week. No weekend dc anticipated.
[2018-10-10 20:00] VITALS: BP 151/91
--- NOTE | 2018-10-10 20:51 | NUR ---
ASSUMED PT CARE AT 1900. PT WAS BEING BROUGHT BACK BY SECURITY AFTER TRYING TO LEAVE AMA. PT WAS SETTLED IN BED, IV MEDICATIONS RESTARTED. PT SEEMED TO BE DOING FINE UNTIL ABOUT 1930 WHEN HE CALLED OUT AND THREATENED TO LEAVE AGAIN IF WE DIDN'T GIVE HIM SOMETHING TO EAT. EDUCATION PROVIDED AND REINFORCED ABOUT WHY HE COULD NOT HAVE SOMETHING TO EAT. SOFTBALL PLAYER, NURSE PRACTITIONER AND DR. CHRISTIANSON WERE INFORMED OF THE SITUATION. ORDERS REINFORCED TO KEEP HIM STRICT NPO. PT SEEMED TO BE OK AND VERBALIZED UNDERSTANDING OF WHY HE CANNOT HAVE SOMETHING TO EAT. AT ABOUT 1999, PT STATED THAT HE ABSOLUTELY WANTED SOMETHING TO EAT AND WILL SIGN THE AMA FORM IF THAT'S WHAT IT TOOK. MORE EDUCATION PROVIDED ABOUT WHAT SIGNING THE AMA FORM MEANS. PT ADAMANT TO LEAVE AND VERBALIZED UNDERSTANDING. TRIED CONTACTING PT'S BUT NO RESPONSE. EXPLAINED TO PT THAT IT WILL BE GOOD FOR HIM TO AT LEAST WAIT FOR HIS TO COME GET HIM HE MENTIONED THAT SHE WAS ON HER WAY TO THE HOSPITAL AND HE DID NOT HAVE ANY SHOES. PT DID NOT WANT TO WAIT. VITALS TAKEN AND STABLE, BLOOD SUGAR WAS 129. NO COMPLAINT OF PAIN. PT CLINICALLY STABLE PRIOR TO LEAVING. AMA FORM SIGNED. SOFTBALL PLAYER, REFUELING RAMP ATTENDANT, AND DR. CHRISTIANSON INFORMED. PT LEFT UNIT AT ABOUT 2030 AND ACCOMPANIED TO SECURITY WHERE HE WASDROPPED OFF. IV DISCONTINUED.
--- NOTE | 2018-10-13 16:28 | O ---
[facility] [place] [address] OPERATIVE REPORT Name: GAURAV TOMAS Room #: 208-P [facility] IN M.R.#: [id number] Admission: 10/02/18 ������������������ Attend Phys: Derrek Berumen MD Discharge: 10/10/18 ������������������ Date of : 64 Report #: [id number] THIS REPORT FOR: //name// CC: Derrek Berumen [facility] physician/PCP Misha Murillo MD DATE OF SERVICE: 10/10/2018 PREOPERATIVE DIAGNOSIS: Right supraglottic laryngeal mass. POSTOPERATIVE DIAGNOSIS: Right supraglottic laryngeal mass. PROCEDURE: Direct endoscopic laryngoscopy with biopsy of right supraglottic mass. DESCRIPTION OF PROCEDURE: The patient was brought to the operating room and placed in the supine position. General anesthesia was obtained. Mask inhalation was provided. An oral endotracheal tube was inserted. The patient was prepped and draped for laryngoscopy and biopsy. A 4 x 4 gauze was used to protect his remaining teeth, which are few and far between and has very poor dentition. A Dedo laryngoscope was used to examine the hypopharynx and larynx. The epiglottis was full on the right side. The laryngeal introitus shows a mass present in the false cords in the supraglottis area on the right side, it spills over into the aryepiglottic fold and in laterally toward the piriform sinus and extends posteriorly to the arytenoid. The right true vocal cord is visualized after moving the mass laterally and it does appear that the right true vocal cord mucosa is intact; however, it is impossible to delineate whether there is immobility of the cord secondary to the bulky nature of the false cord mass versus a true arytenoid paralysis, although the bulk certainly may extend inferiorly down to the arytenoid joint. Micro upbiting cup was then utilized to biopsy the mass and thus this was sent for permanent pathology. There was very little bleeding. The procedure was then terminated. The patient was awoken from anesthesia and transferred to recovery room stable and will remain admitted and have results as soon as possible. ��������������������������������������������� <ELECTRONICALLY SIGNED> ���������������������������������������� By: Chivo Gill MD ��������������������������������������������� 10/13/18 1628 1448 Chivo Gill MD /nt
== END 2018-10-10 20:30 | disposition left against medical advice (07) | DRG 871 ==
LOC: ER 01:27 → 2N 02:50 → EROBS 02:50 → 2N 03:44
PROVIDERS: Emergency Medicine; Internal Medicine Pulmonary Disease; Nurse Practitioner Family; Pediatrics; ADMIT Hospitalist
PROC: 0CBS8ZX Excision of Larynx, Via Natural or Artificial Opening Endoscopic, Diagnostic (ICD-10-PCS; principal; 2018-10-10)
DX: A41.9 Sepsis, unspecified organism (principal); J96.21 Acute and chronic respiratory failure with hypoxia; J96.22 Acute and chronic respiratory failure with hypercapnia; G92 Toxic encephalopathy; J69.0 Pneumonitis due to inhalation of food and vomit; K55.069 Acute infarction of intestine, part and extent unspecified; J44.1 Chronic obstructive pulmonary disease with (acute) exacerbation; L03.114 Cellulitis of left upper limb; J44.0 Chronic obstructive pulmonary disease with (acute) lower respiratory infection; E46 Unspecified protein-calorie malnutrition; C32.0 Malignant neoplasm of glottis; E87.6 Hypokalemia; F15.10 Other stimulant abuse, uncomplicated; K74.60 Unspecified cirrhosis of liver; J38.00 Paralysis of vocal cords and larynx, unspecified; E83.42 Hypomagnesemia; Z96.641 Presence of right artificial hip joint; F17.210 Nicotine dependence, cigarettes, uncomplicated; Z53.21 Procedure and treatment not carried out due to patient leaving prior to being seen by health care provider; Z68.27 Body mass index [BMI] 27.0-27.9, adult; Z79.899 Other long term (current) drug therapy; Z88.5 Allergy status to narcotic agent; Z88.8 Allergy status to other drugs, medicaments and biological substances
CPT/HCPCS: 10797; 50010; 50101; 62110; 62900; 70005

== ENCOUNTER 2018-10-12 14:15 | Inpatient (IN) | payer OTHER ==
[~2018-10-12] VITALS: Ht 162.6 cm; Wt 72.6 kg
[2018-10-12 14:30] VITALS: BP 119/88
[2018-10-12 14:54] LABS: ABSOLUTE NEUTROPHILS 7.7 thou/uL (1.4-8.2); BASOPHILS 0.8 % (0.0-2.0); EOSINOPHILS 1.6 % (0.0-3.0); HEMATOCRIT 36.8 % (42.0-52.0); HEMOGLOBIN 12.2 gm/dL (14.0-18.0); LYMPHOCYTES 11.5 % (24.0-44.0); MCH 28.3 pg (26.0-34.0); MCV 85.7 fL (80.0-100.0); MONOCYTES 10.1 % (1.0-8.0); PLATELET COUNT 169 thou/uL (150-400); RBC 4.29 mil/uL (4.50-6.00); RDW 14.8 % (10.5-14.5); WBC 10.2 thou/uL (4.0-11.0)
[2018-10-12 15:19] LABS: ALBUMIN 2.6 g/dL (3.4-5.0); ANION GAP 2 mmol/L (7-16); BUN 15 mg/dL (7-18); CALCIUM 8.4 mg/dL (8.5-10.1); CHLORIDE 104 mmol/L (98-107); CO2 39 mmol/L (21-32); CREATININE 0.7 mg/dL (0.7-1.3); GLUCOSE 113 mg/dL (74-106); MAGNESIUM 1.3 mg/dL (1.8-2.4); SGOT 97 U/L (15-37); SGPT 150 U/L (30-65); SODIUM 145 mmol/L (136-145); TOTAL BILIRUBIN 0.9 mg/dL (<0.1-1.0); TOTAL PROTEIN 6.1 g/dL (6.4-8.2); TROPONIN-I <0.06 ng/mL (<0.06)
[2018-10-12 15:21] LABS: POTASSIUM 2.8 mmol/L (3.5-5.1)
[2018-10-12 16:17] VITALS: BP 137/82
[2018-10-12 17:04] VITALS: BP 137/82
[2018-10-12 17:29] VITALS: BP 138/81
--- NOTE | 2018-10-12 18:40 | NUR ---
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 PT NOTED TO BE BRUSHING TEETH AND TRYING TO DRINK WATER FROM SINK JUST INSIDE ROOM...ADVISED THAT HE IS STRICT NPO..
[2018-10-12] MEDS ORDERED: NOHOMEMEDICATIONS (19:46)
[2018-10-12 20:00] VITALS: BP 142/98
[2018-10-13 04:00] VITALS: BP 148/100
--- NOTE | 2018-10-13 06:36 | NUR ---
ASSUMMED PT CARE AT 1915HRS. PT MAKING SLOW PROGRESS TOWARDS GOALS. X3 DOSES OF DILAUDID GIVEN FOR THROAT/EPIGASTRIC PAIN. FREQUENTLY RATE PAIN 7-9/10. PT ANGRY IN REGARDS TO NPO ORDER. PT STATING THAT HE DOESN'T WANT A PEG TUBE AND WANTS SOMETHING TO DRINK AND EAT. ENCOURAGED PT TO EXPRESS HIS WISHES TO THE PHYSICIANS.
[2018-10-13 07:10] LABS: CALCIUM 8.6 mg/dL (8.5-10.1); CREATININE 0.8 mg/dL (0.7-1.3); MAGNESIUM 1.8 mg/dL (1.8-2.4); POTASSIUM 3.7 mmol/L (3.5-5.1)
[2018-10-13 07:30] VITALS: BP 143/82
--- NOTE | 2018-10-13 08:46 | EKG ---
[address] [place] [address] ELECTROCARDIOGRAM REPORT Name: GAURAV TOMAS Room #: 364-P ADM IN M.R.#: [id number] ������������������ Admission: 10/12/18 ������������������ Attend Phys: Alexi Turner MD Discharge: ������������������ Date of : 64 Report #: [id number] ����������������������������������������������������������������� [id number] THIS REPORT FOR: //name// [facility] ED Test Date: 2018-10-12 Test Time: 14:42:40 Pat Name: GAURAV TOMAS Department: Room: 364 Gender: M Ocular Care Technician: divina : 1960 Requested By: George Coombs Order Number: [id number] MD: Darwin Arias Measurements Intervals [place] Rate: 85 P: 55 ND: 129 QRS: 56 QRSD: 92 T: 53 QT: 420 QTc: 500 Interpretive Statements Sinus rhythm Compared to ECG 09/17/2017 19:59:53 Poor R-wave progression no longer present T-wave abnormality no longer present Electronically Signed On 10-13-2018 8:46:18 CDT by Darwin Arias [email or web address] ��������������������������������������������� <ELECTRONICALLY SIGNED> ���������������������������������������� By: Darwin Arias MD ��������������������������������������������� 10/13/18 0846 [id number] [id number] Darwin Arias MD /[facility]
[2018-10-13 11:30] VITALS: BP 143/84
--- NOTE | 2018-10-13 13:55 | NUR ---
When PEG ready to use, recommend jevity 1.5 to start at 30ml/hr, progress to goal over 2 days to 60ml/hr. Add water flush of 250 ml every 6 hrs. Recommend daily K, Mg, phos labs to reduce risk of refeeding syndrome since pt has not eaten in several weeks
--- NOTE | 2018-10-13 16:41 | NUR ---
INITIAL ASSESSMENT: Received consult due to pt being homeless. Pt was recently hospitalized at [facility] due to new possible dx of throat cancer. Pt had bx done prior to leaving AMA on 10/11. Pt returned to the ER yesterday. GI consulted. Plan is for pt to have EGD with peg tube placement tomorrow. RD recommendation for Jevity 1.5 30 ml/hr with goal of 60 ml/hr. Add water flush 250 ml every 6 hours. During last admission, KENYETTA met with pt to provide community resource through [employer]. Pt and did complete [place]. KENYETTA met with pt at bedside. Introduced role of SW. Pt is alert/orientated x 4. Pt reports he and his family are currently homeless. SW discussed plan for peg tube placement. Pt agreeable and states that he will complete financial assistance paperwork if needed. KENYETTA contacted [employer] liaison and [employer] liaison regarding financial assistance/zamzam application. Both states that [place]-Medicaid will not go back and cover tube feeding once Medicaid is approved. Information provided: [employer]--$15/day for pump and $1.15/can of tube feeding [employer]--$20/day for pump and $1.34/can of tube feeding Should pt be on bolus TF $4.00/day for supplies. KENYETTA is following to asssist as needed with discharge planning.
[2018-10-13 20:26] VITALS: BP 154/87
--- NOTE | 2018-10-14 03:55 | NUR ---
RECEIVED REPORT @1915 AND ASSESSMENT DONE. PT TO HAVE PEG TUBE PLACEMENT IN THE MORNING AND CURRENTLY NPO FOR EGD VSS, PAIN ASSESSED AND MANAGEMENT DONE. STATED NOT HAVING A BOWEL MOVEMENT FOR MORE THAN 5 DAYS. SUPOSSITORY OREDERED AND GIVEN. PT UP AD ANURADHA AND BEDSIDE COMMODE BESIDE BED WILL CONTINUE TO MONITOR.
[2018-10-14 04:18] VITALS: BP 142/80
[2018-10-14 08:02] VITALS: BP 185/112
[2018-10-14 12:17] VITALS: BP 148/61
--- NOTE | 2018-10-14 16:00 | NUR ---
KENYETTA received call from pt requesting SW visit. KENYETTA reviewed chart and spoke with nursing and attending physician. Pt had peg tube placed earlier today. Water and meds can be used via peg tube. Tube feeding to be started tomorrow. KENYETTA met with pt and two dtrs at bedside. Lengthy discussion regarding discharge planning. Pt and spouse are homeless and have been staying with family and friends. Pt's dtr states that the last case scenario would be for pt and family to come stay with her. SW explained that housing cannot be found and secured by the time pt is ready for discharge. Pt's dtr states that pt and spouse have applied for Section 8 Housing in the past, but have not followed up on the applications. Pt and spouse are not agreeable to consider homeless shelters. Pt's dtr asked about pt being admitted to a nursing facility. Pt's works at [employer]. SW explained that the facility would need to review to see if he needs NH admission criteria and to see if they would consider taking pt as Medicaid pending. Pt agreeable with referral to [facility]. KENYETTA faxed clinical info to [facility] liaison and spoke with Yari. Yari will review info. Should pt not be able to go to [facility] post acute care, pt would need assistance with tube feeding. SW to check rates with Wendy Robin and Misa. KENYETTA is following to assist as needed with discharge planning.
[2018-10-14 16:31] VITALS: BP 155/78
--- NOTE | 2018-10-14 18:24 | NUR ---
ASSUMED PATIENT CARE AT 0700. A/O X4. PATIENT HAD EGD WITH PEG TUBE PLACED TODAY. NO BLEEDING NOTED. UP AD ANURADHA. PROGRESSING TOWARDS POC GOALS.
[2018-10-14 20:22] VITALS: BP 164/95
--- NOTE | 2018-10-15 04:05 | NUR ---
PATIENT IS ALERT AND ORIENTED. PATIENT IS PENDING DC IF TUBE FEEDING ACCESS IS ORGANIZED BY CASE MANAGEMENT. PATIENT HAD PEG TUBE PLACE YESTERDAY AND IS NPO. PATIENTS LBM WAS THE 4TH. PATIENT IS NSR ON TELE. PATIENT MAY GO HOME AFTER DIETARY AND GI ORDER TUBE FEEDING. PATIENT IS RESTING COMFORTABLY IN BED. PAIN MANAGED WITH PAIN MEDICATION. PATIENT IS PROGRESSING TO GOALS PLAN IS TO DO RADIATION THERAPY OUTPATIENT. PATIENT IS RESTING COMFORTABLY IN BED WCM.
[2018-10-15 04:30] VITALS: BP 165/99
--- NOTE | 2018-10-15 07:34 | HC ---
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 He left AMA to celebrate anniversary with his . He returned with pneumonia and shortness of breath. On this admission and with others and she has been found on exam to have a right supraglottic laryngeal cancer, appears to be clinic at T3. CT neck does not appear to show any enlarged lymph nodes noted. A CT head was unremarkable. CT chest, abdomen and pelvis showed inflammatory changes in the lung consistent with aspiration pneumonia, but no metastatic disease or other malignancies. There was a question about SMA plaque, stenosis or possible thrombus. The patient was interviewed briefly because he is preparing to go down for a PEG feeding tube. Per the chart, he has been alert. Lungs have been clear. Abdomen is soft and nontender. PAST MEDICAL HISTORY: Notable for history of a right hip replacement, bowel resection x 2 at [facility], history of COPD, vocal cord tumor, aspiration pneumonia, dysphagia, toxic metabolic encephalopathy. He has been a recent current smoker. CURRENT MEDICATIONS: As of 10/14/2018 including bisacodyl suppositories p.r.n., Zosyn 3.375 grams IV q.8h., hydromorphone p.r.n., IV fluids on a TKO basis, albuterol sulfate, respiratory therapy q.4h. while awake, methylprednisolone 40 mg daily IV and Zofran 4 mg IV p.r.n. FAMILY HISTORY: Noncontributory. SOCIAL HISTORY: The patient has tested positive for methamphetamines. Denies alcohol, has also been a continued smoker. He had worked in construction as a general internist. 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 He has young daughter. They would like see here become older, would have to clarify that. Imaging done during this admission and last one include a CT soft tissue of the neck without contrast showing a slight medial position the right vocal cord and asymmetry of the aryepiglottic folds. There is some scattered small upper cervical lymph nodes identified, most likely benign. There been a CT chest done on 10/02/2018 that showed a right lower lobe pneumonia and atelectasis and some benign granulomatous changes on the right. He also had a CT head on 10/03/2018 that was reported as negative. He had a CT chest, abdomen and pelvis earlier this showed some mediastinal lymph nodes were thought to be normal size. High bilateral pulmonary infiltrates that also been a question of noncalcified plaque or thrombus in the proximal SMA with very focal or very high-grade focal short segment stenosis, called to the nurse, there is also minimal ascites, splenomegaly measuring I think about 16 x 8 cm. Recent lab tests include a BUN of 13, creatinine of 0.8, AST of 97. Total bilirubin 0.9, ALT of 150, alkaline phosphatase 93, albumin of 2.6. White count of 10.2, hemoglobin 12.2, MCV 85.7, and platelets 169. Differential nonacute. PHYSICAL EXAMINATION: VITAL SIGNS: Height is 5 feet 4 inches, 162.6 cm, weight 160 pounds or 72.58 kilograms. Blood pressure 185/112, usually more than 142/80 range. O2 sat 95%, respirations 18, pulse 76, temperature 98.5. HEENT: Face appears symmetrical. Poor dentition. LUNGS: Mostly clear. CARDIOVASCULAR: Regular rate. LYMPHATICS: No definite lymph nodes in the neck, supraclavicular or axillary region. ABDOMEN: Slightly protuberant. Does not appear to be tender. EXTREMITIES: Without clubbing or cyanosis. ASSESSMENT AND PLAN: 1. Reported T3 N0 M0 right supraglottic P16 negative squamous cell cancer. Final path report not written by Dr. Gill, mentions he has had verbal communication. Agree with consideration of chemo and radiation therapy to try to avoid laryngectomy. Radiation Oncology yet to see the patient. The patient will need to be cleared of his pneumonia, would also a perfect world, like to have a PET scan to look at his lymph nodes. I have concern about whether he will be compliant and show for this aggressive therapy. Also, because of his insurance was originally going to be [place] Medicaid pending. He may not be treated by current, also may have to check with our partners on the [place] side and again compliance may be an issue and also traveled depend upon where he is residing. This will make his care difficult and will have to see how participatory the patient and his family are able to be, I am worried about his support system. 2. Aspiration pneumonia. Continues on antibiotics. [facility] [address] [place] [address] CONSULTATION Name: GAURAV TOMAS Room #: 364-P [facility] [place].#: [id number] Admission: 10/12/18 ������������������ Attend Phys: Alexi Turner MD Discharge: ������������������ Date of : 64 Report #: [id number] 3. Dysphagia. The patient is going down for a PEG feeding tube today. 4. Protein-calorie malnutrition, use of PEG feeding tube and use of enteral nutrition will help. 5. Chronic obstructive pulmonary disease. Encourage smoking cessation of medications per others including steroids. 6. Metabolic encephalopathy per chart appears to be clearing. 7. History of cellulitis of the left arm recently. No visible sign today, but still on antibiotics for that and other causes. 8. Polysubstance abuse with tobacco and amphetamines, per others may greatly interfere with compliance encouraged cessation. 9. Social situation. The patient reports being homeless. Social work services see the patient. ��������������������������������������������� <ELECTRONICALLY SIGNED> ���������������������������������������� By: Silvino Nunn MD ��������������������������������������������� 10/15/18 0734 [id number] Silvino Nunn MD /nt
--- NOTE | 2018-10-15 07:34 | HC ---
[facility] [place] [address] CONSULTATION Name: GAURAV TOMAS Room #: 364-P ADM IN M.R.#: [id number] Admission: 10/12/18 ������������������ Attend Phys: Alexi Turner MD Discharge: ������������������ Date of : 64 Report #: [id number] THIS REPORT FOR: //name// CC: [facility] physician/PCP Alexi Turner DATE OF SERVICE: 10/14/2018 ADDENDUM CURRENT MEDICATIONS: As of 10/14/2018 including bisacodyl suppositories p.r.n., Zosyn 3.375 grams IV q.8h., hydromorphone p.r.n., IV fluids on a TKO basis, albuterol sulfate, respiratory therapy q.4h. while awake, methylprednisolone 40 mg daily IV and Zofran 4 mg IV p.r.n. ��������������������������������������������� <ELECTRONICALLY SIGNED> ���������������������������������������� By: Silvino Nunn MD ��������������������������������������������� 10/15/18 0734 [id number] Silvino Nunn MD /nt
[2018-10-15 08:00] VITALS: BP 177/92
[2018-10-15 11:33] VITALS: BP 146/79
--- NOTE | 2018-10-15 15:21 | NUR ---
KENYETTA reviewed chart and spoke with nursing and attending physician. Pt's tube feeding started today. Pt is tolerating TF. [facility] evaluated pt at the bedside today. Pt is too high level for admission to the [facility]. However, should pt's condition decline, [facility] would be willing to re-evaluate pt. KENYETTA spoke with Charlene at [facility] regarding pt's need for tube feeding. Per Charlene, they might be able to help pt with zamzam cases of TF, but pt must have a permanent address, in order for TF to be delivered. [facility] will also need documentation from pt's oncologist as to the TF formula and medical necessity. SW met with pt at bedside to provide update. Pt becoming agitated with the tube feeding pump and IV pump. Pt wanting to eat and drink as well. Nursing educated pt on need for starting TF and gradually increasing. Pt asked to go outside. SW encouraged pt to remain on the unit. Pt verbalized understanding of not being able to go to [facility], and states that he will talk with his and family about where they can go when discharged. Pt is open to going to a homeless long-term if needed. Pt requested SW contact his dtr, Yong, to discuss. KENYETTA spoke with Yong, via phone to provide update. Pt's dtr states she will talk to pt's this evening to see what their options are. KENYETTA contacted [facility], who will be assisting with assisting pt with tube feeding and supplies. Cost would be $358/month and $25/month for syringes. [facility] states that a foundation they work with might be able to assist as well. KENYETTA to discuss costs with Director of Case Mgmt. [facility] cost would be $644.40/month. [facility] cost would be $1.34/can and $4.00/day for bolus supplies. KENYETTA is following to assist as needed with discharge planning.
[2018-10-15 16:33] VITALS: BP 173/87
--- NOTE | 2018-10-15 16:45 | NUR ---
planner internship sending to [facility] [phone]: patient's operative report, dietary note,h&p, face sheet
--- NOTE | 2018-10-15 17:06 | PATH ---
[facility] [place] [address] PATHOLOGY RPT PROCEDURE Name: NII WHITE Room #: 364-P ADM IN M.R.#: [id number] ������������������ Admission: 10/12/18 ������������������ Date of : 64 Discharge: Report #: [id number] Path Case #: [id number] [facility] Accession Number: [id number] . 01 Material submitted: . small bowel - BX OF SMALL BOWEL POLYPS . 01 Clinical history: . Vocal cord cancer . 02 Diagnosis: Polyps, small bowel polyps, endoscopic biopsy: - Fundic-type metaplasia associated with nonspecific acute duodenitis. - Negative for dysplasia (please see comment). - Negative for villous blunting or increase in intraepithelial lymphocytes. . (IUV:carmelo; 10/15/2018) QMS/10/15/2018 . 02 Comment: The findings are suggestive of peptic duodenitis. Abundant gastric fundic-type metaplasia is identified in the background in association with acute duodenitis. Due to the inflammation, reactive changes along with atypia is present within the epithelium; however, definitive dysplasia is not present. . This case was co-reviewed by Dr. Radha Worthington, who concurs with my diagnosis. . (IUV:carmelo; 10/15/2018) . . 02 Electronically signed: . Ashley Michael MD, Pathologist NPI- [id number] . 01 Gross description: . Received in formalin labeled "Nii White, BX of small bowel polyps," are multiple segments of ortiz soft tissue measuring 1.0 x 0.2 x 0.1 cm in aggregate dimensions. The specimen is filtered and entirely submitted in cassette A1. (TSD; 10/14/2018) TOB/TOB . 02 Pathologist provided ICD-10: K29.[address] [address] PATHOLOGY RPT PROCEDURE Name: NII WHITE Room #: 364-P ADM IN M.R.#: [id number] ������������������ Admission: 10/12/18 ������������������ Date of : 64 Discharge: Report #: [id number] Path Case #: [id number] . 02 [facility] . [id number] Specimen Comment: A courtesy copy of this report has been sent to Specimen Comment: [phone], . Specimen Comment: Report sent to / DR ALLISON Performed at: [address], [place], [place] [id number] MD Paul Villasenor MD Phone: [phone] Performed at: [address] [id number] MD Ashley Micahel MD Phone: [phone]
[2018-10-15 19:29] VITALS: BP 147/78
--- NOTE | 2018-10-15 21:39 | NUR ---
PATIENT ALERT AND ORIENTED. PATIENT UP AND WALKING ON THE 3W UNIT. INAPPROPRIATE WITH STAFF. FEMALE STAFF UNCOMFORTABLE WITH PATIENT. PATIENT DEMANDING AND SOMETIMES THREATENS AND TOUCHS STAFF WITHOUT PERMISSION. NOTIFIED CHARGE NURSE SO ONLY MALE STAFF CARE FOR PATIENT. IT IS QUESTIONABLE THAT PATIENT IS MAINTAINING NPO STATUS AND WILL BE ANGRY WITH STAFF IF QUESTIONED ABOUT NPO STATUS. WILL CONTINUE TO MONITOR.
--- NOTE | 2018-10-16 00:29 | NUR ---
NURSE ENTERED PATIENTS ROOM AROUND 1999 FOR PRIMARY ASSESSMENT AND NOTICED PATIENT WAS DISCONNECTED FROM TUBE FEED AND IV ANTIBIOTICS. NURSE INQUIRED WHY PATIENT WAS DISCONNECTED AND PATIENT STATED THAT HE "DID IT" SO HE "COULD TAKE A SHOWER". NURSE ASKED PATIENT TO CALL NURSING STAFF BEFORE TAKING OFF MEDICAL EQUIPMENT AND PATIENT RESPONDED THAT HE WOULD CONTINUE DISCONNECTING IT IF HE "FELT LIKE IT". NURSE SPOKE TO DIRECTOR EPIDEMIOLOGY AND PAINT GRINDER ABOUT THE SITUATION AND WAS TOLD TO EDUCATE AND DOCUMENT. NURSE EDUCATED PATIENT ABOUT THE INFECTION POTENTIAL OF DISCONNECTING IV AND THE IMPORTANCE OF HAVING CONTINUOUS TUBE FEED RUNNING WITHOUT INTERRUPTION. PATIENT WAS SILENT DURING EDUCATION AND DID NOT VERBALIZE AN UNDERSTANDING. WILL CONTINUE TO MONITOR AND EDUCATE.
[2018-10-16 03:45] VITALS: BP 140/79
--- NOTE | 2018-10-16 06:08 | NUR ---
PATIENT IS NOR PROGRESSING IN HIS CARE PLAN PRIMARILY DUE TO GENERAL NON COMPLIANCE WITH TREATMENT MODALITIES. PATIENT HAS TAKEN HIMSELF OFF OF HIS CONTINUOUS TUBE FEED MULTIPLE TIMES, DISCONNECTED AND RECONNECTED HIS IV, AND HAS NOT ADHERED TO NPO STATUS WITH NURSE WITNESSING PATIENT DRINK MULTIPLE CUPS OF COFFEE. EDUCATION PROVIDED MULTIPLE TIMES TO NO AVAIL. PATIENTS VITAL SIGNS STABLE WITH NO COMPLAINTS OF NAUSEA. PATIENT DID COMPLAIN OF PAIN WHICH WAS TREATED EFFECTIVELY. UP AROUND THE UNIT AD ANURADHA WITHOUT INCIDENT, PATIENT APPEARS STRONG AND BALANCED WHEN WALKING. TUBE FEED ADVANCED, BUT NOT QUITE TO DOCTORS ORDERS DUE TO PATIENT NOT ALLOWING TUBE FEED TO BE CONTINUOUS. CONTINUE PLAN OF CARE.
[2018-10-16 08:51] VITALS: BP 161/97
[2018-10-16 12:41] LABS: HEMATOCRIT 39.6 % (42.0-52.0); HEMOGLOBIN 12.8 gm/dL (14.0-18.0); MCH 27.8 pg (26.0-34.0); MCHC 32.2 g/dL (28.0-37.0); MCV 86.2 fL (80.0-100.0); RBC 4.59 mil/uL (4.50-6.00); RDW 15.3 % (10.5-14.5)
--- NOTE | 2018-10-16 15:58 | NUR ---
KENYETTA reviewed chart and spoke with nursing and attending physician. Pt is tolerating goal rate of tube feeding. KENYETTA faxed additional info to [facility] for review. KENYETTA contacted [employer]. Pt will be on bolus TF when discharged. KENYETTA discussed with nursing to do education when pt's family is present. Pt was sleeping soundly during time of SW visit. KENYETTA spoke with pt's dtr, Yong, via phone to discuss discharge plan. Pt and family are still working on where pt will be discharged to from here. KENYETTA updated attending physician. KENYETTA spoke with Ewelina at [facility]. Cost for a month of bolus tube feeding and supplies is $559.55. KENYETTA is following to assist as needed with discharge planning.
--- NOTE | 2018-10-16 18:27 | NUR ---
PATIENT IS NON COMPLAINT WITH CARE ALL DAY. HE WAS NOTED STOPPING HIS PEG TUBE, THEN DISCONNECTING IT WITHOUT FIRST ALERTING THE NURSE. PEG TUBE HAS ONLY INFUSED LESS THAN 100 TODAY. HE WAS NOTED DRINKING COFFEE ( THIN LIQUIDS) WAS EDUCATED ON DANGERS OF DRINKING HE FAILED SWALLOW STUDIES.. HE STATED TO NURSE HE DOES NOT CARE AND WILL PROBABLY NOT USE PEG TUBE WHEN HE DISCHARGES HOME HE WILL BE FREE TO EAT WHATEVER HE WANTS. HE DISCONNECTED IV ABT INFUSING AND PUT OFF THE PUMP. HE WAS EDUCATED ON NEED TO CALL NURSE IF HE IS GOING TO DISCONNECT THE IV. WILL CONT WITH PLAN OF CARE FAR PATIENT IS COOPERATIVE. INSTANCES OF IMPULSIVENESS NOTED WHEN PATIENT STARTED YELLING TO ANY AND EVERYONE IN THE ROOM FOR NO REASON.
[2018-10-16 19:41] VITALS: BP 159/92
[2018-10-17 04:51] VITALS: BP 149/76
[2018-10-17 07:44] VITALS: BP 156/85
--- NOTE | 2018-10-17 07:57 | NUR ---
Pt. ambulates around hallway when awake. He actually slept well during the night with at bedside. Tube feeding infusing and tolerating well. Pt. reminded to please call staff to manage IV pump and tube feeding pump. Unable to educate about bolus feeding , she was sound asleep in room all night. Pain med given x1 this shift per peg with some relief. No respiratory distress. Will continue to monitor.
--- NOTE | 2018-10-17 09:08 | NUR ---
Consider trial of bolus feedings. Recommend 6 cans jevity 1.5/day followed by 165ml water after each bolus.
[2018-10-17] MEDS ORDERED: AUGMENTIN400 MG/53 PER TUBE (11:21)
[2018-10-17] MEDS ORDERED: CLONIDINE1 EAC1 TRANSDERM (11:21)
[2018-10-17] MEDS ORDERED: TRAMADOL 50 MG50 MG PER TUBE (11:21)
[2018-10-17] MEDS ORDERED: PREDNISONE 20 M20 M1 PER TUBE (11:22)
[2018-10-17 11:49] VITALS: BP 158/99
[2018-10-17 13:14] VITALS: BP 158/99
--- NOTE | 2018-10-17 13:18 | NUR ---
assumed care of pt at 0700. pt is a&ox4. pt has been up ad [place], agitated and demanding at times. in anticipation of dc, bolus tube feeds were started. pt receptive to education and participated in teaching lesson/demonstration. pt tolerated bolus of 1 can jevity 1.5 and 165ml flush. pt easily distracted but seems to understand proper process. pt likely needs reinforcement. in room at bedside and also educated. expresses understanding. pt is progressing toward poc goals. will likely dc later today. will continue to monitor and assess.
[2018-10-17 14:33] VITALS: BP 158/99
--- NOTE | 2018-10-17 14:50 | NUR ---
DISCHARGE NOTE: KENYETTA reviewed chart and spoke with nursing and attending physician. Pt is medically stable for discharge home today. Pt has been educated on how to do bolus tube feeding. Additional info and orders faxed to [facility] and confirmed info was received. Pt to have Jevity 1.5 x 6 cans/day. 165ml water after each bolus. KENYETTA met with pt and at bedside to discuss discharge plan. Pt, and family will be staying with their dtr, Yong when discharged. Home address: [address] [place] [address]. [facility], [id number]. KENYETTA explained that [facility] can follow up with pt after discharge to provide tube feeding supplies and additional education. KENYETTA provided pt with [facility] info and prescription discount cards. SW encouraged pt to follow up with the physicians and the SW with [facility] for additional assistance. Both pt and verbalized understanding. Awaiting [facility] form and scripts to be signed by attending physician. Pt and will need a cab ride to Yong's home. Cab voucher provided to pt's nurse. KENYETTA is following to finalize discharge.
--- NOTE | 2018-10-17 17:38 | NUR ---
Pt to dc home. Pt's IV and tele dc'd. Pt's belongings gathered and sent with patient. Per CM, home perscriptions filled in outpatient pharmacy and sent home with patient. Initial tube-feed supplies also sent with PT, per CM. Pt's and son at bedside. Pt left unit at approximately 1720 via w/c, escorted by staff to private vehicle to dc home with and son.
== END 2018-10-17 18:21 | disposition home or self-care (01) | DRG 177 ==
LOC: ER 14:15 → EROBS 15:53 → 3W 15:53
PROVIDERS: Emergency Medicine; ADMIT Internal Medicine
PROC: 0DB88ZX Excision of Small Intestine, Via Natural or Artificial Opening Endoscopic, Diagnostic (ICD-10-PCS; principal; 2018-10-14)
PROC: 0DH63UZ Insertion of Feeding Device into Stomach, Percutaneous Approach (ICD-10-PCS; principal; 2018-10-14)
DX: J69.0 Pneumonitis due to inhalation of food and vomit (principal); G93.41 Metabolic encephalopathy; J96.21 Acute and chronic respiratory failure with hypoxia; K55.069 Acute infarction of intestine, part and extent unspecified; E46 Unspecified protein-calorie malnutrition; L03.114 Cellulitis of left upper limb; C32.0 Malignant neoplasm of glottis; K29.70 Gastritis, unspecified, without bleeding; F19.10 Other psychoactive substance abuse, uncomplicated; K29.80 Duodenitis without bleeding; F15.10 Other stimulant abuse, uncomplicated; J44.9 Chronic obstructive pulmonary disease, unspecified; Z96.641 Presence of right artificial hip joint; Z88.5 Allergy status to narcotic agent; Z88.8 Allergy status to other drugs, medicaments and biological substances; Z68.27 Body mass index [BMI] 27.0-27.9, adult; Z59.0 Homelessness; Z91.19 Patient's noncompliance with other medical treatment and regimen; Z71.6 Tobacco abuse counseling
CPT/HCPCS: 10779; 10879; 62110; 62900; 70005